=== PATIENT | female | born 1985 | race Caucasian/White ===

== ENCOUNTER 2019-01-15 12:13 | Emergency (ER) | payer SELFPAY ==
[~2019-01-15] VITALS: Ht 160 cm; Wt 55.8 kg
[2019-01-15 12:16] VITALS: Ht 160 cm; Wt 55.8 kg
[2019-01-15 16:18] VITALS: BP 132/76
== END 2019-01-15 16:18 | disposition home or self-care (01) ==
LOC: ED 12:13
DX: R07.89 Other chest pain (principal)